=== PATIENT | female | born 1960 | race Two or more races ===

== ENCOUNTER → 2017-07-19 | Outpatient (CLI) | payer OTHER ==
[~2017-07-19] MED LIST: ASPI-1441 PO; BCP
--- NOTE | 2017-07-19 17:32 | RADIOLOGY IMAGING REPORT ---
FACILITY: [facility] - [place] PATIENT NAME: GIANNA LIU : [id number] MR: [id number] V: [id number] EXAM DATE: [id number] ORDERING PHYSICIAN: SERGIO DUMONT TECHNOLOGIST: Kathrin Beatty PROCEDURE:BILATERAL DIAGNOSTIC DIGITAL MAMMOGRAM WITH CAD ASSISTED INTERPRETATION & 3D TOMOSYNTHESIS COMPARISON:Prior mammograms 12/23/16, 07/08/16, 12/11/15, 06/18/15, 09/22/10 INDICATIONS:6 MO F/U FINDINGS: Moderately heterogeneous fibroglandular tissue is seen throughout the breasts. The parenchymal pattern has remained stable allowing for difference in mammographic technique & patient positioning. The small grouping of round calcifications approximate 6 o'clock position of the left breast has remained stable. There is no evidence of malignant appearing mass, malignant appearing calcifications or other secondary sign of malignancy in either breast. DIAGNOSTIC CATEGORY 2--BENIGN FINDING. RECOMMENDATIONS: ROUTINE MAMMOGRAM AND CLINICAL EVALUATION. IMPRESSION: BIRADS 2: Benign finding No significant abnormality is seen Dictated by: Sera Qureshi M.D. on 07/19/2017 at 10:46 Transcribed by: SAHIL on 07/19/2017 at 13:13 Approved by: Sera Qureshi M.D. on 07/19/2017 at 17:31 [facility]
== END ==
LOC: MAMO 09:18
PROVIDERS: ATTEND Obstetrics & Gynecology
DX: R92.1 Mammographic calcification found on diagnostic imaging of breast (principal)
CPT/HCPCS: 77062; 77066

== ENCOUNTER 2017-09-08 08:48 | Emergency (ER) | payer OTHER ==
[2017-09-08 09:00] VITALS: BP 137/81
[2017-09-08 09:17] LABS: PLATELET COUNT, AUTOMATED 184 K/uL (150-450)
[2017-09-08 09:21] LABS: INR 0.97
--- NOTE | 2017-09-08 09:39 | EKG ---
FACILITY: [facility] PATIENT NAME: GIANNA LIU : [id number] MR: [id number] V: [id number] EXAM DATE: ORDERING PHYSICIAN: ABDOULAYE FOUNTAIN TECHNOLOGIST: ROSE Mcmahan Reason : BACK PAIN Blood Pressure : / mmHG Vent. Rate : 068 BPM Atrial Rate : 068 BPM P-R Int : 158 ms QRS Dur : 080 ms QT Int : 396 ms P-R-T Axes : 033 043 042 degrees QTc Int : 421 ms Sinus rhythm Diffuse ST elevation - suspect early repolarization, but cannot exclude other causes No previous ECGs available Confirmed by DALILA CHARLES ([id number] on 09/08/2017 12:18:06 PM Referred By: ESSIE Confirmed By:DALILA CHARLES
--- NOTE | 2017-09-08 09:44 | ER Report ---
History and Physical Time Seen By MD: 08:45 Hx. of Stated Complaint: EPIGASTRIC PAIN AND BURNIGN IN BACK FOR THE LAST WEEK OR TWO. HPI/ROS CHIEF COMPLAINT: [Back pain] HISTORY OF PRESENT ILLNESS: 56-year-old female comes emergency Department today with 3 weeks of intermittent back discomfort across the mid back patient's also had a little bit of epigastric discomfort no chest pain shortness of breath no nausea vomiting diarrhea fever chills no illicit factors additional complaints noted REVIEW OF SYSTEMS: Respiratory: No cough, no dyspnea. Cardiovascular: No chest pain, no palpitations. Gastrointestinal: No vomiting, no abdominal pain. Musculoskeletal: Has back pain Remainder of the 14 system rev: Yes Allergies: Coded Allergies: Penicillins (Verified Allergy, Intermediate, RASH, 01/31/08) Home Meds No Active Prescriptions or Reported Meds Reviewed Nurses Notes: Yes Old Medical Records Reviewed: Yes Hx Smoking: No Smoking Status: Never Smoker Hx Substance Use Disorder: No Hx Alcohol Use: No Constitutional Vital Sign - Last 24 Hours 09/08/17 09/08/17 08:56 09:00 Temp 98.5 Pulse 76 78 Resp 18 12 B/P (MAP) 142/92 137/81 (99) Pulse Ox 98 97 O2 Delivery Room Air Physical Exam General Appearance: The patient is alert, has no immediate need for airway protection and no current signs of toxicity. [ ] Eyes: Pupils equal and round no injection. Respiratory: Chest is non tender, lungs are clear to auscultation. Cardiac: regular rate and rhythm [ ] Gastrointestinal: Abdomen is soft and non tender, no masses, bowel sounds normal. Musculoskeletal: Neck: Neck is supple and non tender. Extremities have full range of motion and are non tender. Skin: No rashes or lesions. [ ] DIFFERENTIAL DIAGNOSIS: After history and physical exam differential diagnosis was considered for pancreatitis myositis low back discomfort herniated disc degenerative disc disease acute myocardial infarction Medical Decision Making Data Points Result Diagram: 09/08/17 0906 09/08/17 0906 Laboratory Hematology Test 09/08/17 09:06 09/08/17 09:15 Red Blood Count 4.32 M/uL (4.17-5.56) Mean Corpuscular Volume 98.8 fL (80.0-96.0) Mean Corpuscular Hemoglobin 34.1 pg (26.0-33.0) Mean Corpuscular Hemoglobin Concent 34.5 g/dL (32.0-36.0) Red Cell Distribution Width 12.5 % (11.5-14.5) Mean Platelet Volume 8.6 fL (7.2-11.1) Neutrophils (%) (Auto) 47.7 % (39.4-72.5) Lymphocytes (%) (Auto) 42.5 % (17.6-49.6) Monocytes (%) (Auto) 6.5 % (4.1-12.4) Eosinophils (%) (Auto) 2.5 % (0.4-6.7) Basophils (%) (Auto) 0.8 % (0.3-1.4) Nucleated RBC Relative Count (auto) 0.1 /100WBC Neutrophils # (Auto) 1.9 K/uL (2.0-7.4) Lymphocytes # (Auto) 1.7 K/uL (1.3-3.6) Monocytes # (Auto) 0.3 K/uL (0.3-1.0) Eosinophils # (Auto) 0.1 K/uL (0.0-0.5) Basophils # (Auto) 0.0 K/uL (0.0-0.1) Nucleated RBC Absolute Count (auto) 0.00 K/uL Prothrombin Time 12.9 seconds (12.0-14.4) Prothromb Time International Ratio 0.97 Activated Partial Thromboplast Time 31 seconds (23-35) Sodium Level 143 mmol/L (137-145) Potassium Level 3.7 mmol/L (3.5-5.0) Chloride Level 103 mmol/L (98-107) Carbon Dioxide Level 25 mmol/L (22-31) Blood Urea Nitrogen 13 mg/dl (7-18) Creatinine 0.80 mg/dl (0.52-1.04) Glomerular Filtration Rate Calc > 60.0 Random Glucose 98 mg/dl (75-110) Calcium Level 10.2 mg/dl (8.4-10.2) Total Bilirubin 0.5 mg/dl (0.2-1.3) Aspartate Amino Transf (AST/SGOT) 32 U/L (0-35) Alanine Aminotransferase (ALT/SGPT) 45 U/L (0-56) Alkaline Phosphatase 100 U/L (0-126) Troponin I < 0.012 ng/ml Total Protein 8.1 gm/dl (6.3-8.2) Albumin 4.4 g/dl (3.5-5.0) Lipase 118 U/L (23-300) Urine Color Straw Urine Clarity Clear Urine pH 7.0 pH (4.8-9.5) Urine Specific Sage 1.004 Urine Protein Negative mg/dL (NEGATIVE) Urine Glucose (UA) Negative mg/dL (NEGATIVE) Urine Ketones Negative mg/dL (NEGATIVE) Urine Blood Negative (NEGATIVE) Urine Nitrite Negative (NEGATIVE) Urine Bilirubin Negative (NEGATIVE) Urine Urobilinogen Negative mg/dL (0.2-1.9) Urine Leukocyte Esterase Trace (NEGATIVE) Urine RBC 1 /HPF (0-2/HPF) Urine WBC 5 /HPF (0-5/HPF) Urine Squamous Epithelial Cells Few /LPF (</=FEW) Urine Transitional Epithelial Cells Few /LPF (NONE-FEW) Urine Bacteria Few /HPF (NONE-FEW) Urine Hyaline Casts Few /LPF (NONE-FEW) Urine Mucus None /HPF (NONE-FEW) Chemistry Test 09/08/17 09:06 09/08/17 09:15 White Blood Count 3.9 k/uL (4.5-11.0) Red Blood Count 4.32 M/uL (4.17-5.56) Hemoglobin 14.7 g/dL (12.0-16.0) Hematocrit 42.7 % (34.0-47.0) Mean Corpuscular Volume 98.8 fL (80.0-96.0) Mean Corpuscular Hemoglobin 34.1 pg (26.0-33.0) Mean Corpuscular Hemoglobin Concent 34.5 g/dL (32.0-36.0) Red Cell Distribution Width 12.5 % (11.5-14.5) Platelet Count 184 K/uL (150-450) Mean Platelet Volume 8.6 fL (7.2-11.1) Neutrophils (%) (Auto) 47.7 % (39.4-72.5) Lymphocytes (%) (Auto) 42.5 % (17.6-49.6) Monocytes (%) (Auto) 6.5 % (4.1-12.4) Eosinophils (%) (Auto) 2.5 % (0.4-6.7) Basophils (%) (Auto) 0.8 % (0.3-1.4) Nucleated RBC Relative Count (auto) 0.1 /100WBC Neutrophils # (Auto) 1.9 K/uL (2.0-7.4) Lymphocytes # (Auto) 1.7 K/uL (1.3-3.6) Monocytes # (Auto) 0.3 K/uL (0.3-1.0) Eosinophils # (Auto) 0.1 K/uL (0.0-0.5) Basophils # (Auto) 0.0 K/uL (0.0-0.1) Nucleated RBC Absolute Count (auto) 0.00 K/uL Prothrombin Time 12.9 seconds (12.0-14.4) Prothromb Time International Ratio 0.97 Activated Partial Thromboplast Time 31 seconds (23-35) Glomerular Filtration Rate Calc > 60.0 Calcium Level 10.2 mg/dl (8.4-10.2) Total Bilirubin 0.5 mg/dl (0.2-1.3) Aspartate Amino Transf (AST/SGOT) 32 U/L (0-35) Alanine Aminotransferase (ALT/SGPT) 45 U/L (0-56) Alkaline Phosphatase 100 U/L (0-126) Troponin I < 0.012 ng/ml Total Protein 8.1 gm/dl (6.3-8.2) Albumin 4.4 g/dl (3.5-5.0) Lipase 118 U/L (23-300) Urine Color Straw Urine Clarity Clear Urine pH 7.0 pH (4.8-9.5) Urine Specific Sage 1.004 Urine Protein Negative mg/dL (NEGATIVE) Urine Glucose (UA) Negative mg/dL (NEGATIVE) Urine Ketones Negative mg/dL (NEGATIVE) Urine Blood Negative (NEGATIVE) Urine Nitrite Negative (NEGATIVE) Urine Bilirubin Negative (NEGATIVE) Urine Urobilinogen Negative mg/dL (0.2-1.9) Urine Leukocyte Esterase Trace (NEGATIVE) Urine RBC 1 /HPF (0-2/HPF) Urine WBC 5 /HPF (0-5/HPF) Urine Squamous Epithelial Cells Few /LPF (</=FEW) Urine Transitional Epithelial Cells Few /LPF (NONE-FEW) Urine Bacteria Few /HPF (NONE-FEW) Urine Hyaline Casts Few /LPF (NONE-FEW) Urine Mucus None /HPF (NONE-FEW) Coagulation Test 09/08/17 09:06 Prothrombin Time 12.9 seconds Prothromb Time International Ratio 0.97 Activated Partial Thromboplast Time 31 seconds Urinalysis Test 09/08/17 09:15 Urine Color Straw Urine Clarity Clear Urine pH 7.0 pH (4.8-9.5) Urine Specific Sage 1.004 Urine Protein Negative mg/dL (NEGATIVE) Urine Glucose (UA) Negative mg/dL (NEGATIVE) Urine Ketones Negative mg/dL (NEGATIVE) Urine Blood Negative (NEGATIVE) Urine Nitrite Negative (NEGATIVE) Urine Bilirubin Negative (NEGATIVE) Urine Urobilinogen Negative mg/dL (0.2-1.9) Urine Leukocyte Esterase Trace (NEGATIVE) Urine RBC 1 /HPF (0-2/HPF) Urine WBC 5 /HPF (0-5/HPF) Urine Squamous Epithelial Cells Few /LPF (</=FEW) Urine Transitional Epithelial Cells Few /LPF (NONE-FEW) Urine Bacteria Few /HPF (NONE-FEW) Urine Hyaline Casts Few /LPF (NONE-FEW) Urine Mucus None /HPF (NONE-FEW) ED Course/Re-evaluation ED Course ED clinical course medical decision making this is a 56-year-old female who comes emergency Department today with a complaint of some back discomfort x- rays showed degenerative disc disease L5 and L6 in addition to that we did a cardiac workup this was normal baseline belly labs chest x-ray gallbladder ultrasound all negative diagnosis degenerative disc disease Decision to Disposition Date: Sep 08, 2017 Decision to Disposition Time: 11:08 Depart Departure Latest Vital Signs Vital Signs Date Time Temp Pulse Resp B/P (MAP) Pulse Ox O2 Delivery O2 Flow Rate FiO2 09/08/17 09:00 78 12 137/81 (99) 97 09/08/17 08:56 98.5 Room Air Impression: Primary Impression: Degenerative disc disease Condition: Improved Disposition: HOME OR SELF-CARE Referrals: ALFREDA GOMEZ DO (PCP) 5 Days New Scripts No Active Prescriptions or Reported Meds Patient Instructions: Degenerative Disc Disease (DC) ABDOULAYE FOUNTAIN MD Sep 08, 2017 09:44
--- NOTE | 2017-09-08 10:15 | RADIOLOGY IMAGING REPORT ---
[place] [facility] [place] NAME: Vianney Tomlinson : 1960 MR: [id number] V: [id number] EXAM DATE: ORDERING PHYSICIAN: ABDOULAYE FOUNTAIN TECHNOLOGIST: Location: [facility] Patient: Vianney Tomlinson : 1960 Visit/Account:[id number] Date of Sevice: 09/08/2017 Exam type: LUMBAR SPINE 2 OR 3 VIEW History: pain Comparison: None. Findings: There are five nonrib-bearing lumbar-type vertebral bodies present with hypoplastic ribs at T12. The re is no evidence of acute fractures or subluxations. There is moderate disc space narrowing at L4-5 with sclerosis of the adjacent endplates. IMPRESSION: 1. Moderate disc space narrowing L4-5 with sclerosis of the adjacent endplates Report Dictated By: Sera Qureshi MD at 09/08/2017 10:01 AM Report E-Signed By: Sera Qureshi MD at 09/08/2017 10:10 AM WSN:[email or web address]
--- NOTE | 2017-09-08 10:15 | RADIOLOGY IMAGING REPORT ---
FACILITY: [facility] - [place] PATIENT NAME: Vianney Tomlinson : 1960 MR: [id number] V: [id number] EXAM DATE: ORDERING PHYSICIAN: ABDOULAYE FOUNTAIN TECHNOLOGIST: Location: [facility] Patient: Vianney Tomlinson : 1960 Visit/Account:[id number] Date of Sevice: 09/08/2017 Exam type: CHEST PA AND LAT History: pain Comparison: December 22, 2009. Findings: The lungs are free of acute effusions, infiltrates or edema. There is no evidence of a pneumothorax or pneumomediastinum. The cardiac silhouette is normal in size. IMPRESSION: 1. No acute cardiac pulmonary process is seen Report Dictated By: Sera Qureshi MD at 09/08/2017 10:10 AM Report E-Signed By: Sera Qureshi MD at 09/08/2017 10:11 AM WSN:[email or web address]
--- NOTE | 2017-09-08 10:33 | RADIOLOGY IMAGING REPORT ---
FACILITY: [facility] - [place] PATIENT NAME: Vianney Tomlinson : 1960 MR: [id number] V: [id number] EXAM DATE: ORDERING PHYSICIAN: ABDOULAYE FOUNTAIN TECHNOLOGIST: Location: [facility] Patient: Vianney Tomlinson : 1960 Visit/Account:[id number] Date of Sevice: 09/08/2017 GALLBLADDER HISTORY: Pain COMPARISON: January 07, 2010 FINDINGS: Gallbladder: Unremarkable; no stones or sludge. Liver: Negative. Common duct: Normal, 4.4 mm diameter. Pancreas: Partially obscured by bowel, visualized aspects unremarkable. Right kidney: Unremarkable measuring 9.3 cm in length Upper abdominal aorta and IVC: Patent. Ascites: None visualized. IMPRESSION: Unremarkable right upper quadrant ultrasound Report Dictated By: Sera Qureshi MD at 09/08/2017 10:26 AM Report E-Signed By: Sera Qureshi MD at 09/08/2017 10:28 AM WSN:[email or web address]
== END 2017-09-08 11:25 | disposition home or self-care (01) ==
LOC: ER 08:50
DX: M51.36 Other intervertebral disc degeneration, lumbar region (principal)
CPT/HCPCS: 71046; 72100; 76705; 81001; 82040; 82247; 82310; 82374; 82435; 82565; 82947; 83690; 84075; 84132; 84155; 84295; 84450; 84460; 84484; 84520; 85025; 85610; 85730; 93005; 99284

== ENCOUNTER → 2018-08-02 | Outpatient (CLI) | payer OTHER ==
--- NOTE | 2018-08-02 16:50 | RADIOLOGY IMAGING REPORT ---
FACILITY: [facility] - [place] PATIENT NAME: GIANNA LIU : [id number] MR: [id number] V: [id number] EXAM DATE: ORDERING PHYSICIAN: SERGIO DUMONT TECHNOLOGIST: Betsy Elder PROCEDURE:BILATERAL DIGITAL SCREENING MAMMOGRAM WITH CAD ASSISTED INTERPRETATION & 3D TOMOSYNTHESIS COMPARISON:Prior mammograms 07/19/17, 12/23/16, 07/08/16, 12/11/15, 06/18/15, 06/16/15. INDICATIONS:SCREENING FINDINGS: Scattered areas of fibroglandular density are seen throughout the breasts. DIAGNOSTIC CATEGORY 1--NEGATIVE. RECOMMENDATIONS: ROUTINE MAMMOGRAM AND CLINICAL EVALUATION. IMPRESSION: BIRADS 1: Negative. No significant abnormality is seen. Dictated by: Sera Qureshi M.D. on 08/02/2018 at 14:47 Transcribed by: SAHIL on 08/02/2018 at 14:53 Approved by: Sera Qureshi M.D. on 08/02/2018 at 16:49 [facility]
== END ==
LOC: MAMO 02:19
PROVIDERS: ATTEND Obstetrics & Gynecology
DX: Z12.31 Encounter for screening mammogram for malignant neoplasm of breast (principal)
CPT/HCPCS: 77063; 77067